=== PATIENT | male | born 1940 | race Caucasian/White ===

== ENCOUNTER → 2018-01-05 | Outpatient (CLI) | payer MEDICARE, OTHER ==
[~2018-01-05] MED LIST: ADVIL100 M1 PO; LISINOPRIL10 MG PO; LOSARTAN POTASS25 MG; MYRBETRIQ50 MG PO; PROAIR HFA INH8.5 GM; PROBIOTIC & AC1 EACH PO; SYMBICORT 16010.2 GM; TRAZODONE HCL50 MG PO; VESICARE5 MG PO
--- NOTE | 2018-01-05 15:41 | Diagnostic Imaging Report ---
PROCEDURE: C-SPINE AP AND LAT WITH FLEX AND EXT COMPARISON: Cervical spine radiographs 07/07/2017 INDICATIONS: POST OP NECK SX FINDINGS: Cervical spine is visualized on the lateral view from the skull base to C6-C7. Status post anterior fusion C4-C6 with plate and screw construct and disc spacers. Stable partial fusion changes at C4-C5 and C5-C6. Orthopedic hardware is intact. No significant change in alignment in flexion and extension views. Vertebral body heights are preserved. No acute displaced fracture or dislocation. Paravertebral soft tissues are unremarkable. CONCLUSION: Status post anterior fusion of C4-C6 with intact hardware. Dictated by: Taurus Nuñez M.D. on 01/05/2018 at 15:42 Electronically approved by: Taurus Nuñez M.D. on 01/05/2018 at 15:42
== END ==
LOC: RAD 14:42
PROVIDERS: ATTEND Neurological Surgery
DX: M50.20 Other cervical disc displacement, unspecified cervical region (principal); Z98.1 Arthrodesis status
CPT/HCPCS: 72050